=== PATIENT | female | born 1960 | race Two or more races ===

== ENCOUNTER 2020-11-08 14:23 | Inpatient (IN) | payer OTHER ==
[~2020-11-08] VITALS: Ht 157.5 cm; Wt 77.1 kg
--- NOTE | 2020-11-09 19:30 | NUR ---
Admitted patient from [facility] via ambulance with DX: s/p (R) knee revision surgery. AAOx4. Greenlandic speaking with a little Honduran. Placed comfortably in bed. Able to SPANGLER with some limitation of ROM on right knee. Saman wrap in placed on right knee. Routine admission care done. Plan of care initiated.
[2020-11-09] MEDS ORDERED: Z GUARD REMEDY PASTE 57 GM TUBE TOP PRN (19:45)
[2020-11-09] MEDS ORDERED: OXYCODONE HCL 5 MG TABLET PO PRN (20:00)
[2020-11-09] MEDS ORDERED: DOCU250C14 PO (20:14)
[2020-11-09] MEDS ORDERED: FAMO20TA8 PO (20:14)
[2020-11-09] MEDS ORDERED: LISI20TA30 PO (20:14)
[2020-11-09] MEDS ORDERED: DIPH25CA83 PO (20:14)
[2020-11-09] MEDS ORDERED: HYDR-3980 PO (20:14)
[2020-11-09] MEDS ORDERED: ASPI-869 PO (20:14)
[2020-11-09] MEDS ORDERED: ALBU18HF2 IH (20:14)
[2020-11-09] MEDS ORDERED: MAG355OR18 PO (20:14)
[2020-11-09] MEDS ORDERED: MAGN400O6 PO (20:14)
[2020-11-09] MEDS ORDERED: BISA10SU61 RC (20:14)
[2020-11-09] MEDS ORDERED: METO10TA3 PO (20:14)
[2020-11-09] MEDS ORDERED: ONDA4TAB5 PO (20:14)
[2020-11-09] MEDS ORDERED: HYDR-3972 PO (20:14)
[2020-11-09] MEDS ORDERED: AZIT500T PO (20:14)
[2020-11-09 20:40] VITALS: BP 129/67
[2020-11-09] MEDS: OXYCODONE HCL 5 MG TABLET PO PRN (22:38)
[2020-11-09] MEDS ORDERED: METOCLOPRAMIDE HCL 10 MG TABLET PO PRN (23:30)
[2020-11-09] MEDS ORDERED: HYDROCODONE/APAP 5-325MG TABLET PO PRN (23:30)
[2020-11-09] MEDS ORDERED: HYDROCODONE/APAP 10-325 MG TABLET PO PRN (23:30)
[2020-11-09] MEDS ORDERED: ONDANSETRON HCL 4 MG TABLET PO PRN (23:30)
[2020-11-09] MEDS ORDERED: MAG HYDROX/AL HYDROX/SIMETH 30 ML LIQUID UDC PO PRN (23:30)
[2020-11-09] MEDS ORDERED: MAGNESIUM HYDROXIDE 30 ML LIQUID UDC PO PRN (23:30)
[2020-11-09] MEDS ORDERED: diphenhydrAMINE 25 MG CAP PO PRN (23:45)
[2020-11-09] MEDS: ALBUTEROL SULFATE 2.5 MG/3 ML NEBU NEB SCH (23:59)
[2020-11-10] MEDS: ALBUTEROL SULFATE 2.5 MG/3 ML NEBU NEB SCH (03:00)
[2020-11-10 04:35] VITALS: BP 114/67
--- NOTE | 2020-11-10 05:38 | NUR ---
Shift End Report: Medicated once for pain on right knee with relief. No further complaint presented. Right knee dressing clean, dry and intact. Swelling and redness on right knee present with 26 hernandez intact. No drainage noted. No significant reported all night. Continue care as planned.
[2020-11-10] MEDS ORDERED: ALBUTEROL SULFATE 2.5 MG/3 ML NEBU NEB PRN (07:26)
[2020-11-10 08:00] VITALS: BP 116/64
[2020-11-10] MEDS ORDERED: BISACODYL 10 MG SUPP.RECT RC SCH (09:00)
[2020-11-10] MEDS: AZITHROMYCIN 250 MG TABLET PO SCH (09:14)
[2020-11-10] MEDS: ASPIRIN EC 325 MG TABLET.DR PO SCH (09:14)
[2020-11-10] MEDS: DOCUSATE SODIUM 250 MG CAPSULE PO SCH (09:14)
[2020-11-10] MEDS: OXYCODONE HCL 5 MG TABLET PO PRN ×2 (09:16→22:33)
[2020-11-10] MEDS: FAMOTIDINE 20 MG TABLET PO SCH ×2 (09:17→20:25)
[2020-11-10] MEDS ORDERED: BISACODYL 10 MG SUPP.RECT RC PRN (09:33)
[2020-11-10] MEDS: LISINOPRIL 20 MG TABLET PO SCH (15:34)
[2020-11-10 16:10] VITALS: BP 123/57
[2020-11-10 20:00] VITALS: BP 142/88
[2020-11-11] MEDS: OXYCODONE HCL 5 MG TABLET PO PRN ×3 (03:01→21:13)
[2020-11-11 04:00] VITALS: BP 119/73
[2020-11-11 06:38] LABS: HEMATOCRIT 32.5 % (31.2-41.9); MEAN CORPUSCULAR VOLUME 81.4 fL (75.5-95.3); PLATELET COUNT (AUTO) 221 K/uL (179-408)
[2020-11-11 06:50] LABS: CREATININE 0.9 mg/dL (0.6-1.3); PHOSPHOROUS 4.9 mg/dL (2.5-4.9); POTASSIUM 4.3 mmol/L (3.5-5.1)
[2020-11-11 08:57] VITALS: BP 116/60
[2020-11-11] MEDS: LISINOPRIL 20 MG TABLET PO SCH (09:02)
[2020-11-11] MEDS: AZITHROMYCIN 250 MG TABLET PO SCH (09:02)
[2020-11-11] MEDS: FAMOTIDINE 20 MG TABLET PO SCH ×2 (09:02→21:11)
[2020-11-11] MEDS: ASPIRIN EC 325 MG TABLET.DR PO SCH (09:02)
[2020-11-11] MEDS: DOCUSATE SODIUM 250 MG CAPSULE PO SCH ×2 (09:17→17:19)
--- NOTE | 2020-11-11 13:30 | NUR ---
Received patient from registry nurse Deanne at this time. Patient is alert, oriented x 3 not in any form of distress, on room air. She denies any pain or discomfort. Call light and frequently used items placed within patient's reach.
[2020-11-11 15:55] VITALS: BP 120/56
[2020-11-11 20:19] VITALS: BP 108/59
[2020-11-12] MEDS: OXYCODONE HCL 5 MG TABLET PO PRN ×3 (03:45→21:08)
[2020-11-12 04:38] VITALS: BP 106/63
--- NOTE | 2020-11-12 06:34 | NUR ---
AAOx4. Macanese speaking, able to make needs known. VSS. C/o of 7/10 pain administered PRN OXYIR x2 this shift, effective. All due medications administered and tolerated well. Needs attended to.Kept comfortable. Dressing intact Saman wrap in placed on right knee. Safety measures maintained. Will continue plan of care and endorse to oncoming shift.
[2020-11-12 07:51] VITALS: BP 107/58
[2020-11-12] MEDS: AZITHROMYCIN 250 MG TABLET PO SCH (08:41)
[2020-11-12] MEDS: DOCUSATE SODIUM 250 MG CAPSULE PO SCH ×2 (08:41→16:39)
[2020-11-12] MEDS: ASPIRIN EC 325 MG TABLET.DR PO SCH (08:41)
[2020-11-12] MEDS: FAMOTIDINE 20 MG TABLET PO SCH ×2 (08:41→21:03)
[2020-11-12] MEDS: LISINOPRIL 20 MG TABLET PO SCH (08:42)
[2020-11-12 16:00] VITALS: BP 105/60
--- NOTE | 2020-11-12 19:00 | NUR ---
The patient is alert/oriented x4. No distress noted. Pain medication given PRN x1. Safety checks frequently done, and maintained. Kept patient clean, dry, and comfortable. Call light within reach. All needs attended. Will continue to monitor.
[2020-11-12 20:18] VITALS: BP 109/61
--- NOTE | 2020-11-12 20:20 | NUR ---
INDIVIDUALIZED PLAN OF CARE
--- NOTE | 2020-11-12 23:37 | NUR ---
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 VSS Kept comfortable. Will monitor patient. Right knee dressing clean dry and intact. Continent of bowel and bladder. Medicated with Oxycontin 10mg for pain with relief noted. BM this shift. CPM twice a day.
[2020-11-13] MEDS: OXYCODONE HCL 5 MG TABLET PO PRN ×3 (02:55→21:39)
[2020-11-13 04:25] VITALS: BP 104/58
[2020-11-13 08:00] VITALS: BP 132/64
[2020-11-13] MEDS: AZITHROMYCIN 250 MG TABLET PO SCH (09:19)
[2020-11-13] MEDS: DOCUSATE SODIUM 250 MG CAPSULE PO SCH ×2 (09:19→17:51)
[2020-11-13] MEDS: FAMOTIDINE 20 MG TABLET PO SCH ×2 (09:19→20:14)
[2020-11-13] MEDS: ASPIRIN EC 325 MG TABLET.DR PO SCH (09:20)
[2020-11-13] MEDS: LISINOPRIL 20 MG TABLET PO SCH (09:20)
[2020-11-13 16:00] VITALS: BP 110/69
--- NOTE | 2020-11-13 19:35 | NUR ---
INTERDISCIPLINARY TEAM CONFERENCE
[2020-11-13 20:45] VITALS: BP 115/66
[2020-11-14] MEDS: OXYCODONE HCL 5 MG TABLET PO PRN ×3 (03:17→22:17)
[2020-11-14 04:00] VITALS: BP 149/69
--- NOTE | 2020-11-14 05:17 | NUR ---
Medicated twice for right knee pain, with relief. No further complaint presented. Ambulatory to the bathroom with FWW. All needs attended and met. Continue care as planned.
[2020-11-14 08:00] VITALS: BP 126/72
[2020-11-14] MEDS: FAMOTIDINE 20 MG TABLET PO SCH ×2 (08:29→20:11)
[2020-11-14] MEDS: ASPIRIN EC 325 MG TABLET.DR PO SCH (08:29)
[2020-11-14] MEDS: LISINOPRIL 20 MG TABLET PO SCH (08:29)
[2020-11-14] MEDS: DOCUSATE SODIUM 250 MG CAPSULE PO SCH ×2 (08:29→16:21)
[2020-11-14] MEDS: AZITHROMYCIN 250 MG TABLET PO SCH (08:30)
--- NOTE | 2020-11-14 09:00 | NUR ---
NSG: Received patient sitting up in her bed. patient is AAOx4. Malay speaking, able to make needs known. All due medications administered and tolerated well. Needs attended to.Kept comfortable. Dressing intact Saman wrap in placed on right knee. Safety measures maintained. Will continue plan of care.
[2020-11-14 09:16] VITALS: BP 126/72
--- NOTE | 2020-11-14 15:26 | NUR ---
nsg: patient c/o oxyir 10 mg po given for pain. family @ bedside. assisted to use bath room. continue plan of care.
[2020-11-14 16:16] VITALS: BP 117/77
[2020-11-14 20:00] VITALS: BP 129/71
[2020-11-15 04:00] VITALS: BP 118/72
[2020-11-15] MEDS: OXYCODONE HCL 5 MG TABLET PO PRN ×3 (04:59→20:43)
--- NOTE | 2020-11-15 06:38 | NUR ---
Medicated twice for pain with relief. No further complaint presented. No fall/injury. Ambulating to the BR with FWW with minimal assist. Continue care as planned.
[2020-11-15 07:34] VITALS: BP 112/64
[2020-11-15] MEDS: DOCUSATE SODIUM 250 MG CAPSULE PO SCH ×2 (08:22→17:50)
[2020-11-15] MEDS: FAMOTIDINE 20 MG TABLET PO SCH ×2 (08:22→21:42)
[2020-11-15] MEDS: ASPIRIN EC 325 MG TABLET.DR PO SCH (08:22)
[2020-11-15] MEDS: LISINOPRIL 20 MG TABLET PO SCH (08:25)
--- NOTE | 2020-11-15 15:15 | NUR ---
PT NOTE pt set up on CPM, ice packs declined by pt stated she does not want to feel cold. RN informed pt on CPM and will need assist for removal. CPM recommended on for 2hrs or less if not tolerating 2hrs.
[2020-11-15 16:31] VITALS: BP 115/63
--- NOTE | 2020-11-15 18:30 | NUR ---
Patient remains alert, oriented x 4, not in any form of distress, on room air. She denies any pain or discomfort at this time. Assisted with her needs. Call light and frequently used items placed within patient's reach. Patient participated with PT, patient given PRN pain medication as ordered for pain with noted relief. Will endorse accordingly.
[2020-11-15 20:39] VITALS: BP 139/72
[2020-11-16] MEDS: OXYCODONE HCL 5 MG TABLET PO PRN ×2 (03:13→11:23)
[2020-11-16 04:40] VITALS: BP 113/67
--- NOTE | 2020-11-16 06:09 | NUR ---
Medicated for pain twice with relief. No further complaint presented. Ambulatory to the bathroom with FWW. WBAT on RLE maintained, Continue current rehab plan of care.
[2020-11-16 07:47] LABS: HEMATOCRIT 33.4 % (31.2-41.9); MEAN CORPUSCULAR VOLUME 81.8 fL (75.5-95.3); PLATELET COUNT (AUTO) 316 K/uL (179-408)
[2020-11-16 08:00] VITALS: BP 145/75
[2020-11-16 08:09] LABS: CREATININE 0.8 mg/dL (0.6-1.3); POTASSIUM 4.5 mmol/L (3.5-5.1)
[2020-11-16] MEDS: ASPIRIN EC 325 MG TABLET.DR PO SCH (08:42)
[2020-11-16] MEDS: DOCUSATE SODIUM 250 MG CAPSULE PO SCH (08:42)
[2020-11-16] MEDS: LISINOPRIL 20 MG TABLET PO SCH (08:42)
[2020-11-16] MEDS: FAMOTIDINE 20 MG TABLET PO SCH (08:42)
--- NOTE | 2020-11-16 09:53 | NUR ---
Patient in bed alert and oriented x 4, Estonian speaking, in room air saturating at 95% with no s/s of distress. All needs met promptly. Dressing is changed.Beau are intact. All needs met in a timely manner. All due meds given per MD order. Call light placed within reach.
--- NOTE | 2020-11-16 14:58 | NUR ---
Patient to dc home 11/16/20 at 1500 with home health and c/p insurance FWW , CPM (at home) follow up with Dr. De Vargas on 11/19/[address] Chacon made aware.
[2020-11-16 15:35] VITALS: BP 111/68
--- NOTE | 2020-11-16 16:09 | NUR ---
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 VS taken WNL. Denies of any pain, with no s/s of distress. Patient is alert and oriented x 4. Left knee dressing is intact with anand wrap. Discharge instructions given. Reminded patient of her follow up with Dr. Vargas. Discharge prescription given. Dr. Torres and Dr. Wolff made aware of the discharge. Assisted patient to the wheelchair down to the hallway with her daughter and assisted in their private car. All belongings are checked and given to the patient.
== END 2020-11-16 15:45 | disposition home health service (06) | DRG 559 ==
PROVIDERS: ADMIT Physical Medicine & Rehabilitation Pain Medicine; ATTEND Physical Medicine & Rehabilitation Pain Medicine
DX: Z47.1 Aftercare following joint replacement surgery (principal); J69.0 Pneumonitis due to inhalation of food and vomit; T84.092D Other mechanical complication of internal right knee prosthesis, subsequent encounter; Z96.651 Presence of right artificial knee joint; M17.11 Unilateral primary osteoarthritis, right knee; E66.9 Obesity, unspecified; I10 Essential (primary) hypertension; J45.909 Unspecified asthma, uncomplicated; Z68.31 Body mass index [BMI] 31.0-31.9, adult; R79.89 Other specified abnormal findings of blood chemistry
CPT/HCPCS: 36415; 83735; 84100; 85025; 97161; A4663; Q0144